=== PATIENT | female | born 1995 | race Caucasian/White ===

== ENCOUNTER → 2017-11-02 16:21 | Outpatient (CLI) | payer OTHER, SELFPAY ==
--- NOTE | 2017-11-02 16:29 | RAD_ITS ---
STUDY: X-RAY - LEFT HAND, ATTENTION SECOND FINGER REASON FOR EXAM: Female, 22 years old. Injury of distal phalanx. Pain. TECHNIQUE: 3 view(s) of the finger were obtained. COMPARISON: None. FINDINGS: Normal metacarpal head. Normal metacarpophalangeal joint. Normal proximal phalanx. Normal middle phalanx. There is nondisplaced fracture of the tuft of the distal phalanx. Normal proximal interphalangeal joint. Normal distal interphalangeal joint. Soft tissues are intact. RAD/Finger(s) Min 2 Views IMPRESSION: Second tuft fracture. Electronically Signed: Beni Conde MD at 16:57 EDT , Service support ,
== END ==
PROVIDERS: Family Provider Family Medicine; PCP Family Medicine; Visit Provider Family Medicine
DX: S69.92XA Unspecified injury of left wrist, hand and finger(s), initial encounter (principal)
CPT/HCPCS: 73140

== ENCOUNTER 2018-06-29 11:00 | Outpatient (RCR) | payer OTHER, SELFPAY ==
[2018-03-17 16:36] VITALS: BMI 19.8
--- NOTE | 2018-05-20 11:59 | HP.PTEVAL ---
Patient's Visit Information ANCA INIGUEZ is a 22 year old F referred to Physical Therapy by [facility] with a diagnosis of L meniscal repair. Date of Evaluation: 05/18/18 Physical Therapist: Nathan Galindo DPT - Visit Plan Frequency: 2x /Week Duration: 6 Weeks Plan: Start with quad, glute med, HS activation, biking for ROM, Core stability/strengthening. Progress to functional strengthening as tolerated. Avoid deep squating and step ups in short term due to new repair. May use modalities as needed. - Subjective Findings: Pt. is here today for her initial evaluation with diagnosis of L meniscal repair. Pt. reports not having a mechanism of injury. Pt. is 6 weeks out of surgery at this point in time (DOS: 04/08). She also had a PRP injections as well. Pt. is no longer in a brace and has weaned off her crutches. Pt. denies N/T in either LE. Pt. reports no pain currenty and has minimal swelling. Pt. reports icing at home occassionally, but has been doing her quad exercises at home. Pt. is a student and the [employer]. Pt. also dances recreationally, ballet and hip hop and would like to get back to these activities. Pt. is having some difficulty with going up and downs stairs and occassional pain if she turns too quickly. Pt. is hopeful to get back to all of her recreational activities without limitations. She does have a history of meniscal injury with surgical intervention. - Pain L knee Pain Intensity (Out of 10): 1 Pain Intensity Range: 0, 2 - Objective POSTURE: Pt. has good posture in stance, slight R wt. shift. Pt. has slight lack of TKE on L side in stance. PALPATION: Pt. has minimal edema, normal healing incsions. Pt. has no signs of blood clot. No redness or pain with pete's testing. NEURO: Normal throughout. No senstation changes or DTR abnormalities. Pt. is able to rise on heels and toes without issues. ROM: R knee 0-0-138deg. L knee 0-3-121deg. Mild increase insymptoms at end ranges. MMT: RLE- 5/5 throughout. LLE- ankle 5/5 ; knee- flexion 4/5, ext quad set + SLR x10 minimal lag. L hip- flexion 4+/5, abd 4+/5, ext 4+/5. Core strength- fair. GAIT: Pt. is able to ambulate without AD. She does have reduced knee flexion during swing phase and lacks TKE during stance phase (minimal). STAIRS: PT. is able to negotiate with step to pattern without increase in symptoms. - Goals Goal 1:: Pt. to be I with HEP. Goal Time Frame: 4-6 Weeks Goal 2:: Pt. to have full ROM of L knee without increase in symptoms. Goal Time Frame: 4-6 Weeks Goal 3:: Pt. to have increased LLE strength by 1/2 grade of all effected musculature. Goal Time Frame: 4-6 Weeks Goal 4:: Pt. to ambulate unlimited distances without increase in symptoms with normal gait pattern. Goal Time Frame: 4-6 Weeks Goal 5:: Pt. to negotiate steps with reciprocal pattern without increase in symptoms. Goal Time Frame: 4-6 Weeks - Rehabilitation Potential Physical Therapy Diagnosis: Pt. has signs and symptoms consistent with L meniscal repair. Pt. has subsequent hypmobility and LLE weakness. Pt. would benefit from PT to increase her ROM, progress muscle activiation and gait. Rehabilitation Potential: Excellent - Anticipated Interventions Patient/Client Instruction: Educate patient on: Condition, Plan of Care, Risk Factors, Benefits of Fitness Program For the Purpose of:: To foster healthy habits, To improve decision making, To facilitate caregiver knowledge, To improve self management, To prevent re-injury, To improve ability to perform tasks related to life management, To improve tolerance to ADL's Therapeutic Exercise to Include: Strength training, Power training, Endurance training, Balance training, Coordination, Flexibilty training, Gait and locomotor training, Passive ROM, Active ROM, Dynamic Lumbar Stabilization For the Purpose of:: To decrease pain, To increase ROM, To improve nutrient delivery to tissue, To increase oxygenation perfusion, To improve muscle performance and motor function, To improve gait and locomotor functions, To improve health of tissue, To decrease soft tissue restriction, To increase flexibility/ROM, To improve balance Manual Therapy Techniques to Include: Trigger point massage, Mobilization, Passive ROM For the Purpose of:: To decrease pain, To increase ROM, To improve nutrient delivery to tissue, To increase oxygenation perfusion, To improve muscle performance and motor function, To improve gait and locomotor functions, To improve health of tissue, To decrease soft tissue restriction, To increase flexibility/ROM IF ES: Yes Cryotherapy (ice pack, ice massage): Yes Vasopneumatic device: Yes For the Purpose of:: To decrease pain, To decrease swelling/inflammation, To increase ROM, To improve nutrient delivery to tissue, To improve health of tissue Thank you for the opportunity to evaluate your patient. For Medicare and Medicare HMO plans, please review the plan of care and approve it. It will need to be FAXED BACK to us at [phone] for Medicare purposes. For Medicare only, by signing this I certify the plan of care. Please let me know if there are questions or concerns regarding this plan of care. Physician Signature: Date:
[2018-06-01 18:32] LABS: Rubella IgG 55.1 IU/mL
[2018-06-04 12:59] LABS: Mumps Antibody,IgG 13.2 AU/mL (Immune >10.9); Rubeola IgG Ab < 25.0 AU/mL (Immune >29.9); V-Zoster IgG (Immunity) 146 index (Immune >165)
--- NOTE | 2018-12-06 08:04 | HP.PTDCNRP_ITS ---
HP - Discharge Summary (1) - Patient Information ANCA INIGUEZ was seen in my office for initial evaluation on 05/18/18. The following Plan of Care was established for this patient: Initial Frequency: 2x /Week Initial Duration: 6 Weeks - Anticipated Interventions Patient/Client Instruction: Educate patient on: Condition, Plan of Care, Risk Factors, Benefits of Fitness Program For the Purpose of:: To foster healthy habits, To improve decision making, To facilitate caregiver knowledge, To improve self management, To prevent re- injury, To improve ability to perform tasks related to life management, To improve tolerance to ADL's Therapeutic Exercise to Include: Strength training, Power training, Endurance training, Balance training, Coordination, Flexibilty training, Gait and loco motor training, Passive ROM, Active ROM, Dynamic Lumbar Stabilization For the Purpose of:: To decrease pain, To increase ROM, To improve nutrient delivery to tissue, To increase oxygenation perfusion, To improve muscle performance and motor function, To improve gait and locomotor functions, To improve health of tissue, To decrease soft tissue restriction, To increase flexi bility/ROM, To improve balance Manual Therapy Techniques to Include: Trigger point massage, Mobilization, Passive ROM For the Purpose of:: To decrease pain, To increase ROM, To improve nutrient delivery to tissue, To increase oxygenation perfusion, To improve muscle performance and motor function, To improve gait and locomotor functions, To improve health of tissue, To decrease soft tissue restriction, To increase flexibility/ROM IF ES: Yes Cryotherapy (ice pack, ice massage): Yes Vasopneumatic device: Yes For the Purpose of:: To decrease pain, To decrease swelling/inflammation, To increase ROM, To improve nutrient delivery to tissue, To improve health of tissue This patient was last seen in our office 06/29/18. Pertinent comments regarding their Physical therapy will appear below: Pt. was last seen on 06/29/18. Pt. was doing well after her last appointment and was to follow up with PT in 2 weeks if needed. Pt. has notbeen seen in several months and will be DC from PT at this point in time. At this point I will be discontinuing this patient from physical therapy. I would be happy to see this patient again in the future if found appropriate by the physician. Thank you! Nathan Galindo, PAULETTE
== END 2018-06-29 19:00 | disposition home or self-care (01) ==
LOC: PT 11:00
PROVIDERS: Family Provider Family Medicine; PCP Family Medicine; Referring Provider Orthopaedic Surgery; Visit Provider Orthopaedic Surgery
DX: Z91.89 Other specified personal risk factors, not elsewhere classified (principal); Z28.3 Underimmunization status
CPT/HCPCS: 36415; 86735; 86762; 86765; 86787; 97110; 97161

== ENCOUNTER → 2019-04-10 10:30 | Outpatient (CLI) | payer OTHER, SELFPAY ==
[2019-04-10 12:26] VITALS: BMI 19.8
== END ==
PROVIDERS: Family Provider Family Medicine; PCP Family Medicine; Referring Provider Nurse Practitioner Family; Visit Provider Nurse Practitioner Family
DX: J02.9 Acute pharyngitis, unspecified (principal)
CPT/HCPCS: 87081

== ENCOUNTER → 2019-12-06 13:34 | Outpatient (CLI) | payer OTHER, SELFPAY ==
[2019-04-10 12:26] VITALS: BMI 19.8
[2019-12-06 17:16] LABS: Vitamin D,25 Hydroxy 36.5 ng/mL
[2019-12-06 17:23] LABS: Ferritin 50 ng/mL (8-252); T4 Free Direct 0.92 ng/dL (0.76-1.46); Thyroid Stim Hormone (TSH) 1.07 uIU/mL (0.358-3.74)
[2019-12-11 13:15] LABS: Thyroid Peroxidase AB 143 IU/mL (0-34); Zinc, Plasma or Serum 113 ug/dL (56-134)
== END ==
PROVIDERS: PCP Family Medicine; Visit Provider Family Medicine
DX: R53.83 Other fatigue (principal); E63.9 Nutritional deficiency, unspecified; D64.9 Anemia, unspecified
CPT/HCPCS: 36415; 82306; 82728; 84439; 84443; 84630; 86376